=== PATIENT | male | born 1985 | race Two or more races ===

== ENCOUNTER 2021-07-21 00:29 | Emergency (ER) | payer OTHER, SELFPAY ==
--- NOTE | ~2021-07-21 | XR_ITS ---
EXAMINATION: LEFT HAND AND WRIST CLINICAL INFORMATION: Left wrist injury COMPARISON: None TECHNIQUE: 4 views left hand and wrist FINDINGS: No significant bone, joint or soft tissue abnormality is seen. XR/XR hand wrist LT IMPRESSION: Negative exam
[2021-07-21 00:41] VITALS: PULSE 86; RESP 18; TEMP 36.8; O2SAT 98; BMI 34.5
--- NOTE | 2021-07-21 01:21 | ED.EXTPRO ---
HPI - Extremity Problem General Chief complaint: Extremity Injury, Upper Stated complaint: hand pain from previous inj Time Seen by Provider: 07/21/21 01:11 Source: patient History of Present Illness HPI Narrative: Patient complaining of pain in the left wrist for last few months had x-ray done which was negative wearing the splint feels some numbness and tingling on the thumb and 1st 2 fingers no recurrent injury at this time patient complaining of pain getting worse Abi sleep with tingling sensation Related Data Previous Rx's Medication Instructions Recorded ibuprofen 600 mg tablet 600 mg PO Q6H PRN pain #30 tabs 07/21/21 prednisone 20 mg tablet 40 mg PO DAILY #10 tabs 07/21/21 Allergies Allergy/AdvReac Type Severity Reaction Status Date / Time avocado Allergy Rash Verified 07/21/21 00:41 raspberry Allergy Rash Verified 07/21/21 00:41 Review of Systems Review of Systems: Yes all other systems are reviewed and are negative PMFSH Social History Social History Advance Directives: No Advance Directives Information Provided: Yes Physical Exam Vital Signs: Vital Signs: Last Vital Signs Temp 98.3 F 07/21/21 00:41 Pulse 86 07/21/21 00:41 Resp 18 07/21/21 00:41 Pulse Ox 98 07/21/21 00:41 O2 Del Method 07/21/21 00:41 BMI result Body Mass Index 34.5 Extrem: Hand/finger images: 1. Diffuse tenderness slight soft tissue swelling neurovascular intact Tinel sign negative felon positive? With increased pain MDM - Extremity (Nontraumatic) MDM Narrative Medical decision making narrative: Patient x-ray negative likely patient had carpal tunnel syndrome on the left wrist advised to follow with hand surgeon Discharge Plan Discharge Clinical Impression: Carpal tunnel syndrome of left wrist Patient Disposition: Home, Self-Care Instructions: Wrist Sprain (ED) Additional Instructions: Wear the splint as advised especially while asleep Pain medication and anti-inflammatory medication as prescribed Follow with Orthopedics Prescriptions: New prednisone 20 mg tablet 40 mg PO DAILY Qty: 10 0RF ibuprofen 600 mg tablet 600 mg PO Q6H PRN (Reason: pain) Qty: 30 0RF Referrals: Juliano Garzon MD [Physician] - 1 week
[2021-07-21] MEDS: Ibuprofen 600 MG TABLET PO (02:21)
--- NOTE | 2021-07-21 02:24 | PC.NURSE ---
medicated per provider order.
== END 2021-07-21 02:25 | disposition home or self-care (01) ==
PROVIDERS: Emergency Provider Internal Medicine
DX: G56.02 Carpal tunnel syndrome, left upper limb (principal); M25.532 Pain in left wrist
CPT/HCPCS: 73110; 73130; 99283

== ENCOUNTER 2021-10-15 09:51 | Outpatient (REF) | payer OTHER, SELFPAY ==
--- NOTE | 2021-10-15 09:54 | EMG_ITS ---
Left median and ulnar motor and sensory studies were performed. Left radial and sensory study was performed, and paraspinal muscles were tested with a needle. IMPRESSION: Moderately severe left median neuropathy across carpal tunnel. MD JACQUELINE Jackson/JACK / [id number]
== END 2021-10-15 09:52 | disposition home or self-care (01) ==
LOC: HO.NEURO 09:51
PROVIDERS: Visit Provider Physician Assistant
DX: G56.02 Carpal tunnel syndrome, left upper limb (principal)
CPT/HCPCS: 95886; 95909

== ENCOUNTER → 2021-12-09 14:05 | Outpatient (BNVA) | payer OTHER, SELFPAY | PROVIDERS: Visit Provider Physician Assistant | DX: G56.02 Carpal tunnel syndrome, left upper limb (principal) | CPT/HCPCS: 99202 ==

== ENCOUNTER 2021-12-24 | Outpatient (REF) | payer OTHER, SELFPAY ==
--- NOTE | ~2021-12-24 | XR_ITS ---
EXAMINATION: BILATERAL KNEE X-RAY CLINICAL INFORMATION: Pain COMPARISON: None TECHNIQUE: 3 views of both knees FINDINGS: Right: Bone alignment is normal. No fracture or dislocation. Mild arthritis at the medial femoral tibial joint with joint space narrowing and osteophyte formation. No joint effusion. Left: Bone alignment is normal. No fracture or dislocation. Mild arthritis at the medial femoral tibial and patellofemoral joints. Small joint effusion. XR/XR knee standing BI IMPRESSION: Mild bilateral osteoarthritis and left knee joint effusion.
--- NOTE | ~2021-12-24 | XR_ITS ---
EXAMINATION: BILATERAL KNEE X-RAY CLINICAL INFORMATION: Pain COMPARISON: None TECHNIQUE: 3 views of both knees FINDINGS: Right: Bone alignment is normal. No fracture or dislocation. Mild arthritis at the medial femoral tibial joint with joint space narrowing and osteophyte formation. No joint effusion. Left: Bone alignment is normal. No fracture or dislocation. Mild arthritis at the medial femoral tibial and patellofemoral joints. Small joint effusion. XR/XR knee LT 2V IMPRESSION: Mild bilateral osteoarthritis and left knee joint effusion.
--- NOTE | ~2021-12-24 | XR_ITS ---
EXAMINATION: BILATERAL KNEE X-RAY CLINICAL INFORMATION: Pain COMPARISON: None TECHNIQUE: 3 views of both knees FINDINGS: Right: Bone alignment is normal. No fracture or dislocation. Mild arthritis at the medial femoral tibial joint with joint space narrowing and osteophyte formation. No joint effusion. Left: Bone alignment is normal. No fracture or dislocation. Mild arthritis at the medial femoral tibial and patellofemoral joints. Small joint effusion. XR/XR knee RT 2V IMPRESSION: Mild bilateral osteoarthritis and left knee joint effusion.
== END 2021-12-24 00:01 ==
LOC: HO.HOSX
PROVIDERS: Visit Provider Physician Assistant
DX: M22.2X2 Patellofemoral disorders, left knee (principal); M22.2X1 Patellofemoral disorders, right knee
CPT/HCPCS: 73560; 73565; 99212

== ENCOUNTER → 2022-03-22 10:32 | Outpatient (BNVA) | payer OTHER, SELFPAY | PROVIDERS: Visit Provider Orthopaedic Surgery | DX: G56.02 Carpal tunnel syndrome, left upper limb (principal) | CPT/HCPCS: 99202 ==

== ENCOUNTER 2022-04-21 08:18 | Outpatient (REF) | payer OTHER, SELFPAY ==
--- NOTE | ~2022-04-21 | XR_ITS ---
EXAMINATION: XR SHOULDER, RIGHT CLINICAL INFORMATION: Pain COMPARISON: None available. TECHNIQUE: AP external rotation, Grashey, scapular Y, and axillary views of the right shoulder. FINDINGS: The bones and soft tissues are normal. No fracture. Glenohumeral and acromioclavicular alignment is anatomic with normal joint space. No abnormal soft tissue calcifications. XR/XR shoulder RT min 2V IMPRESSION: Unremarkable right shoulder.
== END 2022-04-21 08:19 | disposition home or self-care (01) ==
LOC: HO.HOSX 08:18
PROVIDERS: Visit Provider Physician Assistant
DX: M75.81 Other shoulder lesions, right shoulder (principal)
CPT/HCPCS: 73030; 99212

== ENCOUNTER 2022-04-22 09:41 | Outpatient (REF) | payer OTHER, SELFPAY ==
--- NOTE | 2022-04-22 09:45 | EMG_ITS ---
Right median and ulnar motor and sensory studies were performed. Right radial sensory study was performed. Paraspinal muscles were tested with a needle. IMPRESSION: 1. Moderately severe right median neuropathy across carpal tunnel. 2. Mild right ulnar neuropathy across cubital tunnel. MD JACQUELINE Jackson/JACK / [id number]
== END 2022-04-22 09:42 | disposition home or self-care (01) ==
LOC: HO.NEURO 09:41
PROVIDERS: Visit Provider Orthopaedic Surgery
DX: R20.0 Anesthesia of skin (principal); R20.2 Paresthesia of skin
CPT/HCPCS: 95886; 95909

== ENCOUNTER 2022-05-19 15:00 | Outpatient (RCR) | payer OTHER, SELFPAY | END 2022-08-12 11:47 | disposition home or self-care (01) | LOC: HO.PT 15:00 | PROVIDERS: Visit Provider Physician Assistant | DX: M22.2X1 Patellofemoral disorders, right knee (principal) | CPT/HCPCS: 97110; 97161 ==

== ENCOUNTER 2022-06-12 01:12 | Emergency (ER) | payer OTHER, SELFPAY ==
--- NOTE | ~2022-06-12 | XR_ITS ---
EXAMINATION: XR WRIST, LEFT CLINICAL INFORMATION: Acute on chronic left wrist pain, nontraumatic COMPARISON: 07/21/2021 TECHNIQUE: PA, lateral, and oblique views of the left wrist. FINDINGS: Borderline widened appearance of the scapholunate interval is noted, similar to prior. No acute fracture is seen. No significant soft tissue abnormality identified. XR/XR wrist LT 2V IMPRESSION: Borderline widened appearance of the scapholunate interval, similar to prior and which could reflect sequelae of prior injury. In the setting of chronic pain, further workup with MRI may be helpful.
[2022-06-12 01:20] VITALS: BP 129/84; PULSE 103; RESP 20; TEMP 36.3; O2SAT 96; BMI 31.0
--- NOTE | 2022-06-12 03:09 | ED_ITS ---
HPI - Extremity Problem General Chief complaint: Extremity Problem Stated complaint: Left hand numbness/tingling Time Seen by Provider: 06/12/22 02:24 Source: patient Mode of arrival: ambulatory Limitations: no limitations History of Present Illness HPI Narrative: 36-year-old male who presents emergency department for evaluation of left wrist pain patient states he has been having left wrist pain for 1-2 months but has been worse over the last week. He has seen orthopedics and was told and has carpal tunnel syndrome. He states that he was supposed to have surgery but his glucose was out of control in the surgery was canceled. He states over the past 2 weeks he has had increased pain in his wrist. He complains of numbness and tingling in his thumb index and middle finger. He denies any weakness. He d enies any acute injury. Has been taking naproxen without any relief his pain. Related Data Home Medications Medication Instructions Recorded Confirmed aspirin 81 mg tablet,delayed 81 mg PO DAILY 12/09/21 04/21/22 release atorvastatin 40 mg tablet 40 mg PO DAILY 12/09/21 04/21/22 cetirizine 10 mg tablet 10 mg PO DAILY PRN allergies 12/09/21 04/21/22 insulin glargine 100 unit/mL unit subcut 12/09/21 04/21/22 subcutaneous solution (Lantus U-100 Insulin) insulin syringe-needle U-100 0.5 #10 ea 12/09/21 04/21/22 mL 31 gauge x 5/16 (BD Insulin Syringe Ultra-Fine) dulaglutide 0.75 mg/0.5 mL mg subcut 04/21/22 04/21/22 subcutaneous pen injector (Trulicity) Previous Rx's Medication Instructions Recorded ibuprofen 600 mg tablet 600 mg PO Q6H PRN pain #30 tabs 07/21/21 prednisone 20 mg tablet 40 mg PO DAILY #10 tabs 07/21/21 naproxen 500 mg tablet 500 mg PO BID #60 tabs 05/14/22 Allergies Allergy/AdvReac Type Severity Reaction Status Date / Time avocado Allergy Rash Verified 04/21/22 09:34 raspberry Allergy Rash Verified 04/21/22 09:34 Review of Systems Review of Systems: Yes all other systems are reviewed and are negative PMFSH Past Medical History Medical History Diabetes Hx of eye surgery Hypertension Surgical History Hx of wisdom tooth extraction Social History Social History Advance Directives: No Advance Directives Information Provided: Yes 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 General: Awake, alert, male patient, pleasant, cooperative no distress Right extremity exam: Patient has no significant soft tissue swelling over the wrist hands or fingers, does have tenderness palpation over the carpal tunnel. Has increased pain with flexion extension of the wrist, his extremities neurovascular intact. Medical Decision Making Medical Decision Making MDM Narrative: 36-year-old male who presents emergency department for evaluation of right wrist pain x2 months with increased pain x2 weeks. He has been diagnosed with carpal tunnel syndrome and his surgery was canceled secondary to his diabetes being under control. Patient's presentation and findings are consistent with carpal tunnel syndrome. He was advised to continue taking his naproxen. He was placed in a Velcro wrist splint to see if this improves his symptoms he was told to wear this for 2 weeks. X-rays were obtained and there was no acute fracture noted on my interpretation of these films. Radiologist noted borderline widened appearance of the scapholunate interval, similar to prior and which could reflect sequelae of prior injury . This however does not fit the patient's presentation and clinical picture Differential Diagnosis Differential diagnosis includes was not limited to carpal tunnel syndrome, tendinitis, wrist fracture ABG Data Attestation ABG: I personally reviewed and interpreted this ABG as follows: Independent Interpretation I performed an independent interpretation of an: Plain X-Ray Interpretation: Right wrist x-ray was interpreted by me as no acute fracture or dislocation Radiology Impression Discussion of test interpretation with radiology: I have reviewed the radiologist's reading. Radiologist Impression: XR wrist LT 2V IMPRESSION: Borderline widened appearance of the scapholunate interval, similar to prior and which could reflect sequelae of prior injury. In the setting of chronic pain, further workup with MRI may be helpful. Dictated By:Ronnie Escobar MD Discharge Plan Discharge Clinical Impression: Acute pain of left wrist Acute carpal tunnel syndrome Qualifiers: Laterality: left Qualified Code(s): G56.02 - Carpal tunnel syndrome, left upper limb Patient Disposition: Home, Self-Care Additional Instructions: Your symptoms are consistent with inflammation of the median nerve that goes through the carpal tunnel-this is called carpal tunnel syndrome Treatment is to rest your wrist for at least 1 week. Keep the wrist splint on for 1 week, you can even wear this at night since you do move your wrist at night. Continue taking the naproxen as prescribed by your doctor. Take Tylenol (acetaminophen) 500 mg pills, 2 pills every 6 hours as needed for pain. Apply ice to your wrist for 15 minutes 4 to 6 times a day the next 2-3 days Follow-up with your orthopedic provider for your carpal tunnel syndrome. Please return to the emergency department if your symptoms get worse or if you develop any symptoms that are concerning to you. Prescriptions: No Action naproxen 500 mg tablet 500 mg PO BID Qty: 60 3RF prednisone 20 mg tablet 40 mg PO DAILY Qty: 10 0RF ibuprofen 600 mg tablet 600 mg PO Q6H PRN (Reason: pain) Qty: 30 0RF Trulicity 0.75 mg/0.5 mL pen injector subcut (DME) insulin syringe-needle U-100 [BD Insulin Syringe Ultra-Fine] 0.5 mL 31 gauge x 5/16 syringe See Rx Instructions .ROUTE DAILY Qty: 10 Rx Instructions: As directed cetirizine 10 mg tablet 10 mg PO DAILY PRN (Reason: allergies) aspirin 81 mg tablet,delayed release (DR/EC) 81 mg PO DAILY atorvastatin 40 mg tablet 40 mg PO DAILY insulin glargine [Lantus U-100 Insulin] 100 unit/mL solution subcut Interventions: ED Discharge Assessment Last Done: 06/12/22 03:31 Discharge Date/Time: 06/12/22 03:31
--- NOTE | 2022-06-12 03:34 | PC.NURSE ---
discharge instructions given/explained to pt no apparent distress, splint placed L ambulates safely/independently all of pt's questions answered
== END 2022-06-12 03:31 | disposition home or self-care (01) ==
PROVIDERS: Emergency Provider Emergency Medicine Emergency Medical Services
DX: G56.02 Carpal tunnel syndrome, left upper limb (principal); M25.532 Pain in left wrist; E11.9 Type 2 diabetes mellitus without complications; I10 Essential (primary) hypertension; Z79.899 Other long term (current) drug therapy; Z79.82 Long term (current) use of aspirin; Z79.02 Long term (current) use of antithrombotics/antiplatelets; Z79.4 Long term (current) use of insulin
CPT/HCPCS: 73100; 99283; 99284

== ENCOUNTER → 2022-06-18 14:30 | Outpatient (BNVA) | payer OTHER, SELFPAY | PROVIDERS: Visit Provider Physician Assistant | DX: G56.01 Carpal tunnel syndrome, right upper limb (principal) | CPT/HCPCS: 99212 ==

== ENCOUNTER → 2022-06-23 09:40 | Outpatient (BNVA) | payer OTHER, SELFPAY | PROVIDERS: Visit Provider Orthopaedic Surgery | DX: G56.03 Carpal tunnel syndrome, bilateral upper limbs (principal) | CPT/HCPCS: 99212 ==

== ENCOUNTER 2022-12-23 08:17 | Outpatient (REF) | payer OTHER, SELFPAY ==
--- NOTE | ~2022-12-23 | XR_ITS ---
EXAMINATION: XR KNEE, RIGHT XR KNEE AP STANDING CLINICAL INFORMATION: Pain. COMPARISON: Prior radiographs, most recently 12/24/2021. TECHNIQUE: Four views of the right knee. AP bilateral standing view of the knees was obtained. FINDINGS: The lateral, medial and patellofemoral joint space compartments of the right knee are well-maintained. There is minimal tricompartment peripheral osteophyte formation. No fracture, dislocation or joint effusion is seen. There is no foreign body. The lateral and medial joint space compartments of the left knee are well-maintained, with mild peripheral osteophyte formation. No fracture or dislocation is seen. There is no significant varus or valgus configuration noted bilaterally. XR/XR knee standing BI IMPRESSION: 1. There is minimal tricompartment osteoarthritic change of the right knee. No fracture, dislocation or joint effusion is seen. 2. There is minimal osteoarthritic change of the lateral and medial joint space compartments of the left knee, without fracture or dislocation seen. 3. No significant varus or valgus configuration is seen bilaterally.
--- NOTE | ~2022-12-23 | XR_ITS ---
EXAMINATION: XR KNEE, RIGHT XR KNEE AP STANDING CLINICAL INFORMATION: Pain. COMPARISON: Prior radiographs, most recently 12/24/2021. TECHNIQUE: Four views of the right knee. AP bilateral standing view of the knees was obtained. FINDINGS: The lateral, medial and patellofemoral joint space compartments of the right knee are well-maintained. There is minimal tricompartment peripheral osteophyte formation. No fracture, dislocation or joint effusion is seen. There is no foreign body. The lateral and medial joint space compartments of the left knee are well-maintained, with mild peripheral osteophyte formation. No fracture or dislocation is seen. There is no significant varus or valgus configuration noted bilaterally. XR/XR knee RT 2V IMPRESSION: 1. There is minimal tricompartment osteoarthritic change of the right knee. No fracture, dislocation or joint effusion is seen. 2. There is minimal osteoarthritic change of the lateral and medial joint space compartments of the left knee, without fracture or dislocation seen. 3. No significant varus or valgus configuration is seen bilaterally.
== END 2022-12-23 08:18 | disposition home or self-care (01) ==
LOC: HO.HOSX 08:17
PROVIDERS: Visit Provider Physician Assistant
DX: M22.2X2 Patellofemoral disorders, left knee (principal); M22.2X1 Patellofemoral disorders, right knee
CPT/HCPCS: 73560; 73565; 99212

== ENCOUNTER 2022-12-23 08:59 | Outpatient (AMB) | payer OTHER, SELFPAY ==
--- NOTE | 2022-12-23 09:07 | A.OFFVIS_ITS ---
Intake Vital Signs 12/23/22 09:10 Height 5 ft 9 in Weight 210 lb BMI 31.0 Intake Visit Reasons: OV-Right knee pain Intake Note: Nathan a 37 year old male presents today for a follow up of right knee pain. Patient reports attending PT which provided him relief and continues to do at home exercises. Currently his pain radiates down his leg and will have locking with stair use. States cold weather makes his pain worse. 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 Allergies avocado Allergy (Verified 12/23/22 09:17) Rash raspberry Allergy (Verified 12/23/22 09:17) Rash HPI OV-Right knee pain HPI Details 37-year-old male who returns to the [facility] today for a follow-up of right knee pain. He currently states he has pain in his knee which radiates down to his leg which is aggravated in cold weather. He also c/o locking of his knee with stair use. He had undergone physical therapy which provided him relief and he continues to do exercises at home. He finds no relief with knee brace. 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 He has a history of diabetes. He takes insulin for his sugar. 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 Tenderness along the medial joint line on the right and lateral retropatellar tenderness on the left. ROM full with crepitus. Negative steinmans. No ligamentous laxity. NVI. Results Reviewed Results Reviewed: Xrays were obtained in the office today and personally reviewed by me of the right knee show well preserved joint space. Assessment & Plan Assessment & Plan (1) Patella-femoral syndrome: Code(s): M22.2X9 - Patellofemoral disorders, unspecified knee Qualifiers: Laterality: bilateral Qualified Code(s): M22.2X1 - Patellofemoral disorders, right knee; M22.2X2 - Patellofemoral disorders, left knee Plan We discussed options which include cortisone injection vs physical therapy exercises. I did explain that with his activity level it is likely that he is overstressing the knee and there is an imbalance. Therefore, I strongly encouraged he continues to work on physical therapy exercises. I did print some exercises for him in the office and he will defer on injection today. If symptoms persist or worsens, patient will contact the office, otherwise follow- up as needed. Orders: Orders XR knee RT 2V Today M25.569 - Pain in unspecified knee XR knee standing BI Today M25.561 - Pain in right knee, M25.562 - Pain in left knee Medications: New celecoxib (Celebrex) 200 mg PO BID 30 days 60 caps 3RF celecoxib (Celebrex) 200 mg PO BID 60 caps 3RF 30 days Patient Instructions: Scribed for Blake Dominguez PA-C, by Carlos Horta program medical director, on 12/23/2022 at 9:00 AM EST. I, Blake Dominguez PA-C, have personally reviewed and agree with the information entered by the scribe. Coding Level of Care Code Est Pt Level 3 (89182) Diagnoses Patellofemoral pain syndrome of both knees M22.2X1; M22.2X2 Laterality: bilateral
[2022-12-23 09:10] VITALS: BMI 31.0
== END 2022-12-23 09:32 | disposition home or self-care (01) ==
PROVIDERS: Visit Provider Physician Assistant
DX: M22.2X1 Patellofemoral disorders, right knee (principal); M22.2X2 Patellofemoral disorders, left knee
CPT/HCPCS: 99214

== ENCOUNTER 2023-01-05 15:13 | Outpatient (AMB) | payer OTHER, SELFPAY ==
--- NOTE | 2023-01-05 15:27 | A.OFFVIS_ITS ---
Intake Intake Visit Reasons: OV-CTS B/L hands Intake Note: Nathan 37 yr old male presents today to discuss Carpal tunnel release however his A1C is currently a 8.3. Allergies avocado Allergy (Verified 01/05/23 15:32) Rash raspberry Allergy (Verified 01/05/23 15:32) Rash HPI OV-CTS B/L hands HPI Details Nathan is a 37 year old right hand dominant man who returns to discuss his left carpal tunnel syndrome. He has been signed up two now for a left carpal tunnel release, both were cancelled due to uncontrolled Diabetes. He says his most recent HgA1c was 8.3% on [ ]. He continues to have dense numbness in the left median nerve distribution. He did not attend his scheduled left NCS on 08/19/22, to assess for cubital tunnel syndrome. He has intermittent numbness in the median nerve distribution of his right hand. He also complains of pain and swelling in his hands, and says he has difficulty making a closed fist without pain. He also says his fingers lock on him when making a fist. 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 Review of Systems Const All systems reviewed & are unremarkable except as noted in HPI and below Physical Exam Const General: no acute distress and alert Orientation/consciousness: patient oriented x3 Neuro General: patient oriented x3 Extrem Other: Evaluation of left Upper Extremity: The patient is alert, oriented, and in no acute distress Neuro: Improved and more normal to the tips of all digits of his left hand No intrinsic or thenar wasting Good finger cross Vascular: Cap refill brisk ROM: With encouragement he can make a fist and extend all his digits He complains of pain in the mid palm of his left hand, as well as a bony prominence on the dorsal base of the hand Radiographs: 3 views of the left hand were taken and viewed by me today in clinic. They show no fractures or dislocations. [ ] Nerve Conduction Study: EMG of right upper extremity only 04/2022 1. Moderately severe right median neuropathy across carpal tunnel. 2. Mild right ulnar neuropathy across cubital tunnel. Psych Appearance: grossly normal Affect: normal affect Attitude: cooperative Assessment & Plan Assessment & Plan (1) Carpal tunnel syndrome on right: Code(s): G56.01 - Carpal tunnel syndrome, right upper limb (2) Carpal tunnel syndrome of left wrist: Code(s): G56.02 - Carpal tunnel syndrome, left upper limb (3) Bilateral hand numbness: Code(s): R20.0 - Anesthesia of skin (4) Diabetes: Code(s): E11.9 - Type 2 diabetes mellitus without complications (5) Stiffness of left hand joint: Code(s): M25.642 - Stiffness of left hand, not elsewhere classified Plan Assessment and plan: 1. Left carpal tunnel syndrome based on clinical exam More normal sensation No thenar wasting yet. 2. Numbness and tingling in the left small finger Intermittent, and he thinks it is now daily He did not attend his previously ordered NCS to assess his left side. I educated him about these conditions We discussed operative and non operative treatment options. He has been scheduled twice for a carpal tunnel release, both of these were cancelled due to an elevated HgA1c. He says his most recent HgA1c is now 8.3%, down form >13%. He will continue to work on this I ordered a new NCS for his LUE to assess for peripheral nerve compression He will follow up when completed for review and after his next HgA1c is tested. This appointment should be sometime in late March at the earliest 3. Left hand stiffness I encouraged him to work on ROM exercises at home 4. Right carpal tunnel syndrome, mild to moderate Symptoms intermittent but daily 5. Right cubital tunnel syndrome, mild He is not sure if he gets numbness and tingling in the right small finger Please note that greater than 35 minutes was spent with this patient going over the history, evaluating the patient and radiographs, formulating possible treatment options, discussing them with the patient, and documenting the visit. Scribed for Rimma Vilchis MD by Oliverio Ladd, medical facilities section director, on 01/05/23 at 3:45 PM, EST. Orders: Orders XR hand LT min 3V 01/05/23 M79.642 - Pain in left hand NE nerve conduction velocity 01/05/23 R20.0 - Anesthesia of skin, R20.2 - Paresthesia of skin Coding Level of Care Code Est Pt Level 4 (66729) Diagnoses Carpal tunnel syndrome on right G56.01 Carpal tunnel syndrome of left wrist G56.02 Bilateral hand numbness R20.0 Diabetes E11.9 Stiffness of left hand joint M25.645
== END 2023-01-05 15:54 | disposition home or self-care (01) ==
PROVIDERS: Visit Provider Orthopaedic Surgery
DX: G56.03 Carpal tunnel syndrome, bilateral upper limbs (principal); R20.0 Anesthesia of skin; E11.9 Type 2 diabetes mellitus without complications; M25.642 Stiffness of left hand, not elsewhere classified
CPT/HCPCS: 99213

== ENCOUNTER 2023-01-05 15:13 | Outpatient (REF) | payer OTHER, SELFPAY ==
--- NOTE | ~2023-01-05 | XR_ITS ---
EXAMINATION: XR HAND, LEFT CLINICAL INFORMATION: Pain in left hand COMPARISON: Left wrist from 06/12/2022 TECHNIQUE: PA, lateral, and oblique views of the left hand. FINDINGS: The bones and soft tissues are normal. No fracture. Alignment is anatomic. Joint spaces are maintained. No erosions or soft tissue calcifications. XR/XR hand LT min 3V IMPRESSION: Normal left hand.
== END 2023-01-05 15:14 | disposition home or self-care (01) ==
LOC: HO.HOSX 15:13
PROVIDERS: Visit Provider Orthopaedic Surgery
DX: G56.03 Carpal tunnel syndrome, bilateral upper limbs (principal); R20.0 Anesthesia of skin; M25.642 Stiffness of left hand, not elsewhere classified; E11.9 Type 2 diabetes mellitus without complications
CPT/HCPCS: 73130; 99212

== ENCOUNTER 2023-02-02 13:44 | Emergency (ER) | payer OTHER, SELFPAY ==
--- NOTE | 2023-02-02 13:48 | ED_ITS ---
HPI - Abdominal Pain General Chief Complaint: Abdominal Pain Stated Complaint: Abd pain Related Data Home Medications Medication Instructions Recorded Confirmed aspirin 81 mg tablet,delayed 81 mg PO DAILY 12/09/21 04/21/22 release atorvastatin 40 mg tablet 40 mg PO DAILY 12/09/21 04/21/22 cetirizine 10 mg tablet 10 mg PO DAILY PRN allergies 12/09/21 04/21/22 insulin syringe-needle U-100 0.5 #10 ea 12/09/21 04/21/22 mL 31 gauge x 5/16 (BD Insulin Syringe Ultra-Fine) dulaglutide 1.5 mg/0.5 mL mg subcut 12/23/22 subcutaneous pen injector (Trulicity) insulin glargine 100 unit/mL (3 unit subcut 12/23/22 mL) subcutaneous pen (Lantus Solostar U-100 Insulin) Previous Rx's Medication Instructions Recorded ibuprofen 600 mg tablet 600 mg PO Q6H PRN pain #30 tabs 07/21/21 prednisone 20 mg tablet 40 mg (2 x 20 mg) PO DAILY #10 tabs 07/21/21 naproxen 500 mg tablet 500 mg PO BID #60 tabs 05/14/22 celecoxib 200 mg capsule (Celebrex) 200 mg PO BID 30 days #60 caps 12/23/22 Allergies Allergy/AdvReac Type Severity Reaction Status Date / Time avocado Allergy Rash Verified 01/05/23 15:32 raspberry Allergy Rash Verified 01/05/23 15:32 [facility] Past Medical History Medical History (Updated 02/03/23 @ 16:49 by CAMERON Valle) Hx of eye surgery Hypertension Diabetes Surgical History Hx of wisdom tooth extraction Social History Social History Advance Directives on File: No 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 denies testicular pain. Admits pain is intermittent. Denies dysuria/hematuria Labs, UA, CTNG ordered Full HPI, ROS and PE to be performed by primary ED provider.x HTN, DM, c/o Medical Decision Making Lab Data 02/02/23 14:06 02/02/23 14:06 Labs: Lab Results 02/02/23 Range/Units 14:06 WBC 4.7 L (4.8-10.8) X10*3/uL RBC 5.19 (4.60-5.80) X10*6/uL Hgb 15.3 (14.0-18.0) g/dl Hct 45.1 (42.0-52.0) % MCV 86.9 (80.0-98.0) fL MCH 29.5 (27.0-33.0) pg MCHC 33.9 (31.0-36.0) g/dl RDW 13.3 (11.0-16.0) % Plt Count 200 (160-400) X10*3/uL MPV 10.6 (9.4-12.4) fL Immature Gran % (Auto) 0.0 (0.0-0.4) % Neut % (Auto) 54.6 (45-73) % Lymph % (Auto) 31.0 (20-40) % [place] % (Auto) 10.2 (2-11) % Eos % (Auto) 3.8 (0-4) % Baso % (Auto) 0.4 (0-2) % Lymph # (Auto) 1.5 (1.2-4.9) X10*3/uL [place] # (Auto) 0.5 (0.1-1.2) X10*3/uL Eos # (Auto) 0.2 (0.0-0.4) X10*3/uL Baso # (Auto) 0.0 (0.0-0.2) X10*3/uL Abs Immat Gran (auto) 0.00 (0.00-0.03) X10*3/uL Absolute Neuts (auto) 2.6 (2.0-8.3) x10*3/uL Absolute Nucleated RBC 0.000 (0.0-0.012) X10*3/uL Nucleated RBC % (auto) 0.0 (0.0-0.2) /100WBC Sodium 137 (135-145) mmol/L Potassium 4.0 (3.3-5.1) mmol/L Chloride 105 (96-108) mmol/L Carbon Dioxide 27 (22-29) mmol/L Anion Gap 9 L (12-20) BUN 11 (9-16) mg/dL Creatinine 0.96 (0.5-1.4) mg/dL Estim Creat Clear Calc 124.0 Estimated GFR > 60 Random Glucose 300 H (60-115) mg/dL Calcium 9.2 (8.4-10.2) mg/dL Magnesium 1.9 (1.6-2.6) mg/dL Total Bilirubin 0.4 (0.0-1.0) mg/dL Direct Bilirubin 0.1 (0.0-0.5) mg/dL AST 21 (5-37) U/L ALT 25 (0-40) U/L Alkaline Phosphatase 93 (39-117) U/L Total Protein 7.4 (6.5-8.0) g/dL Albumin 4.2 (3.5-5.0) g/dL Lipase 28 (8-78) U/L Urine Color Yellow Urine Appearance Clear Urine pH 6.0 (5.0-9.0) Ur Specific [place] >= 1.030 H (1.005-1.025) Urine Protein Negative (Neg-Trace) mg/dL Urine Glucose (UA) >=1000 H (Negative) mg/dL Urine Ketones Negative (Negative) mg/dL Urine Blood Negative (Negative) Urine Nitrite Negative (Negative) Ur Leukocyte Esterase Negative (Negative) Urine RBC 3-5 H (0-2) /HPF Urine WBC 0-5 (0-5) /HPF Ur Squamous Epith Cells 0-2 (0-2) /HPF Urine Bacteria None Seen (None Seen) Hyaline Casts 0-2 (0-2) /LPF Chlam trachomat DNA PCR NOT DETECTED (Not Detect.) N.gonorrhoeae DNA (PCR) NOT DETECTED (Not Detect.) Discharge Plan Discharge Clinical Impression: Abdominal pain Patient Disposition: Left W/O Completing Treatment Prescriptions: No Action naproxen 500 mg tablet 500 mg PO BID Qty: 60 3RF prednisone 20 mg tablet 40 mg PO DAILY Qty: 10 0RF ibuprofen 600 mg tablet 600 mg PO Q6H PRN (Reason: pain) Qty: 30 0RF (DME) insulin syringe-needle U-100 [BD Insulin Syringe Ultra-Fine] 0.5 mL 31 gauge x 5/16 syringe See Rx Instructions .ROUTE DAILY Qty: 10 Rx Instructions: As directed cetirizine 10 mg tablet 10 mg PO DAILY PRN (Reason: allergies) aspirin 81 mg tablet,delayed release (DR/EC) 81 mg PO DAILY atorvastatin 40 mg tablet 40 mg PO DAILY Trulicity 1.5 mg/0.5 mL pen injector subcut insulin glargine [Lantus Solostar U-100 Insulin] 100 unit/mL (3 mL) insulin pen subcut celecoxib [Celebrex] 200 mg capsule 200 mg PO BID 30 Days Qty: 60 3RF Discharge Date/Time: 02/02/23 22:22
[2023-02-02 13:49] VITALS: BP 128/81; PULSE 77; RESP 18; TEMP 36.7; O2SAT 99; BMI 34.1
[2023-02-02 14:12] LABS: MANUAL DIFF FLAG NO
[2023-02-02 14:19] LABS: Basophils Percent Auto 0.4 % (0-2); Eosinophils Absolute Auto 0.2 X10*3/uL (0.0-0.4); Eosinophils Percent Auto 3.8 % (0-4); Hematocrit 45.1 % (42.0-52.0); Hemoglobin 15.3 g/dl (14.0-18.0); Lymphocytes Absolute Auto 1.5 X10*3/uL (1.2-4.9); Mean Corpuscular HGB Conc 33.9 g/dl (31.0-36.0); Mean Corpuscular Hemoglobin 29.5 pg (27.0-33.0); Mean Corpuscular Volume 86.9 fL (80.0-98.0); Mean Platelet Volume 10.6 fL (9.4-12.4); Monocytes Absolute Auto 0.5 X10*3/uL (0.1-1.2); Monocytes Percent Auto 10.2 % (2-11); Neutrophils Absolute Auto 2.6 x10*3/uL (2.0-8.3); Neutrophils Percent Auto 54.6 % (45-73); Platelet Count 200 X10*3/uL (160-400); Red Blood Count 5.19 X10*6/uL (4.60-5.80); Red Cell Distribution Width 13.3 % (11.0-16.0); White Blood Count 4.7 X10*3/uL (4.8-10.8)
[2023-02-02 14:21] LABS: Appearance Urine Clear; Color Urine Yellow; Glucose Urine UA >=1000 mg/dL (Negative); Leukocyte Esterase Urine Negative (Negative); Nitrite Urine Negative (Negative); Specific Gravity - Urine >= 1.030 (1.005-1.025); UMIC TRIGGER UACC YES; Urine Blood Negative (Negative); Urine Ketones Negative (Negative); Urine Protein Negative (Neg-Trace)
[2023-02-02 14:27] LABS: Bacteria Urine None Seen (None Seen); Hyaline Casts Urine 0-2 /LPF (0-2); Squamous Epithelial Cell Urine 0-2 /HPF (0-2); WBC Urine 0-5 /HPF (0-5)
[2023-02-02 14:38] LABS: Alanine Aminotransferase 25 U/L (0-40); Albumin Level 4.2 g/dL (3.5-5.0); Alkaline Phosphatase 93 U/L (39-117); Anion Gap 9 (12-20); Aspartate Amino Transferase 21 U/L (5-37); Bilirubin Direct 0.1 mg/dL (0.0-0.5); Bilirubin Total 0.4 mg/dL (0.0-1.0); Blood Urea Nitrogen 11 mg/dL (9-16); Calcium 9.2 mg/dL (8.4-10.2); Carbon Dioxide 27 mmol/L (22-29); Chloride 105 mmol/L (96-108); Estimated Glomerular Filt Rate > 60; Glucose Random 300 mg/dL (60-115); Lipase 28 U/L (8-78); Magnesium 1.9 mg/dL (1.6-2.6); Sodium 137 mmol/L (135-145); Total Protein 7.4 g/dL (6.5-8.0)
[2023-02-02 16:37] LABS: CT PCR NOT DETECTED (Not Detect.); NG PCR NOT DETECTED (Not Detect.)
--- NOTE | 2023-02-02 20:13 | PC.NURSE ---
pt not in waiting room at 2000
== END 2023-02-02 22:22 | disposition left against medical advice (07) ==
LOC: HO.ED 22:20
PROVIDERS: Physician Assistant; Emergency Provider Emergency Medicine
DX: R10.9 Unspecified abdominal pain (principal); I10 Essential (primary) hypertension; E11.9 Type 2 diabetes mellitus without complications
CPT/HCPCS: 0353U; 36415; 80048; 80076; 81001; 83690; 83735; 85025; 99282; 99283

== ENCOUNTER 2023-05-04 13:32 | Outpatient (REF) | payer OTHER, SELFPAY ==
--- NOTE | 2023-05-04 13:35 | EMG_ITS ---
Chief complaint: Continued hand numbness, poorly controlled DM Reviewed past EMG. Done by Dr. Navarro, right 04/22/2022, left 10/2021. Reason for referral: Evaluate for Carpal Tunnel Syndrome Referred by: Dr. Vilchis Procedure done: Left upper extremity NCS/EMG Precautions and/or limitations: None The limb temperature was monitored continuously and remained between 32-36 degrees C during the performance of the NCS. Nerve Conduction Studies Anti Sensory Summary Table ?Stim Site NR Onset (ms) Norm Onset (ms) Peak (ms) Norm Peak (ms) O-P Amp (?V) Norm O-P Amp Site1 Site2 Delta-0 (ms) Dist (cm) Carlos Alberto (m/s) Norm Carlos Alberto (m/s) Left Median Anti Sensory (2nd Digit) Wrist NR <3.6 >10 Wrist 2nd Digit 14.0 Left Radial Anti Sensory (Thumb) Forearm ? 1.7 2.1 <3.1 28.3 Forearm Thumb 1.7 0.0 Left Ulnar Anti Sensory (5th Digit) Wrist ? 2.3 3.0 <3.7 12.5 >15.0 Wrist 5th Digit 2.3 14.0 61 Motor Summary Table ?Stim Site NR Onset (ms) Norm Onset (ms) O-P Amp (mV) Norm O-P Amp iAmp (mV) Amp (1st) (%) Site1 Site2 Delta-0 (ms) Dist (cm) Carlos Alberto (m/s) Norm Carlos Alberto (m/s) Left Median Motor (Abd Poll Brev) Wrist ? 10.3 <3.9 1.1 >4.5 1.2 100.0 Elbow Wrist 4.8 21.5 45 >45 Elbow ? 15.1 0.9 1.0 81.8 Left Ulnar Motor (Abd Dig Minimi) Wrist ? 2.8 <3.0 5.5 >5 7.2 100.0 B Elbow Wrist 3.7 20.0 54 >45 B Elbow ? 6.5 9.1 11.7 165.5 A Elbow B Elbow 1.7 10.0 59 >45 A Elbow ? 8.2 8.9 11.4 161.8 EMG ?Side Muscle Nerve Root Ins Act Fibs Psw Amp Dur Poly Recrt Int Pat Comment Left 1stDorInt Ulnar C8-T1 Nml Nml Nml Nml Nml 0 Nml Complete Left FlexCarRad Median C6-7 Nml Nml Nml Nml Nml 0 Nml Complete Left Biceps Musculocut C5-6 Nml Nml Nml Nml Nml 0 Nml Complete Left Triceps Radial C6-7-8 Nml Nml Nml Nml Nml 0 Nml Complete Left Deltoid Axillary C5-6 Nml Nml Nml Nml Nml 0 Nml Complete Left Abd Poll Brev Median C8-T1 Incr 1+ 1+ Nml Nml 0 Nml Complete FINDINGS: Left median motor nerve showed prolonged distal latency, small amplitude and normal conduction velocity. Left median sensory nerve showed absent response. All other nerves tested were within normal. Concentric needle EMG was performed in selected muscles of the left upper extremity. Study revealed signs of electric abnormalities as shown in the table below. Left APB showed increased insertional activity, fibrillations and PSWs IMPRESSION: 1. This is an abnormal study. 2. There is electrodiagnostic evidence for left moderate-severe median neuropathy at the wrist, consistent with carpal tunnel syndrome. 3. There is no electrodiagnostic evidence for ulnar neuropathy, brachial plexopathy, or cervical radiculopathy. CLINICAL COMMENT: Study today shows worsening as compared to study done 2021. Thank you for your kind referral. Katty Adame MD, [place]WA Board Certified, [place] [employer] and Rehabilitation (ABPMR) Board Certified, [place] Board [employer] Electrodiagnostic Medicine (ABEM) [place] [id number] [facility]
== END 2023-05-04 13:33 | disposition home or self-care (01) ==
LOC: HO.NEURO 13:32
PROVIDERS: Visit Provider Orthopaedic Surgery
DX: R20.0 Anesthesia of skin (principal); R20.2 Paresthesia of skin
CPT/HCPCS: 95886; 95909

== ENCOUNTER → 2023-05-04 13:35 | Outpatient (BNV) | payer OTHER, SELFPAY | PROVIDERS: Visit Provider Physical Medicine & Rehabilitation | DX: G56.02 Carpal tunnel syndrome, left upper limb (principal); G56.12 Other lesions of median nerve, left upper limb | CPT/HCPCS: 95886; 95909 ==

== ENCOUNTER 2023-05-31 10:38 | Outpatient (AMB) | payer OTHER, SELFPAY ==
--- NOTE | 2023-05-31 10:39 | MHC.OFFVIS ---
Vital Signs 05/31/23 10:53 Height 5 ft 8 in Weight 223 lb BMI 33.9 Intake Visit Reasons: OV- EMG Done LT hand Intake Note: Nathan is a 37 year old right hand dominant man who returns to discuss his left carpal tunnel syndrome. He has been signed up two now for a left carpal tunnel release, both were cancelled due to uncontrolled Diabetes. Reports his symptoms have worsen. States his A1C is still high. New NCS ordered for his LUE to assess for peripheral nerve compression done 05/04/23. Allergies avocado Allergy (Verified 05/31/23 10:54) Rash raspberry Allergy (Verified 05/31/23 10:54) Rash HPI HPI OV- EMG Done LT hand: Details: Nathan is a 37 year old right hand dominant man who returns for a NCS review of his left carpal tunnel syndrome. He has been signed up two now for a left carpal tunnel release, both were cancelled due to uncontrolled Diabetes. He says his most recent HgA1c is high at 10.2%, which occurred after a 2 month lapse in the medication he needed for treatment of his diabetes. Evidently there has been a shortage.. He continues to have dense numbness in the left median nerve distribution, and worsening numbness in the right median nerve distribution. His right hand symptoms are intermittent, but daily, worse at night He says his hand locking & stiffness has improved. He is a Diabetic, and says he recently went without medication for ~2 months due to a shortage of Trulicity and issues with his insurance. He says he was able to resume his medication ~3 weeks ago, and is scheduled to meet with his PCP soon. 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 Normal sensation in the small fingers, bilaterally No thenar wasting on the left Some thenar wasting on the right No intrinsic wasting bilaterally Good APB muscle belly firing & good finger cross Vascular: Cap refill brisk ROM: He can make a fist and extend all his digits Nerve Conduction Study: Left side only: IMPRESSION: 1. This is an abnormal study. 2. There is electrodiagnostic evidence for left moderate-severe median neuropathy at the wrist, consistent with carpal tunnel syndrome. 3. There is no electrodiagnostic evidence for ulnar neuropathy, brachial plexopathy, or cervical radiculopathy. CLINICAL COMMENT: Study today shows worsening as compared to study done 2021. Katty Adame MD, HAWA 05/04/23 Right side only: 1. Moderately severe right median neuropathy across carpal tunnel. 2. Mild right ulnar neuropathy across cubital tunnel. Dr. Navarro 04/22/22 Psych Appearance: grossly normal Affect: normal affect Attitude: cooperative Office Procedures Fracture Care Details: No fracture, carpal tunnel injection Fracture Billing Code: Fracture Billing Code Assessment & Plan Assessment & Plan (1) Carpal tunnel syndrome on right: Code(s): G56.01 - Carpal tunnel syndrome, right upper limb Category: Medical (2) Carpal tunnel syndrome of left wrist: Code(s): G56.02 - Carpal tunnel syndrome, left upper limb Category: Medical (3) Bilateral hand numbness: Code(s): R20.0 - Anesthesia of skin Category: Medical (4) Diabetes: Code(s): E11.9 - Type 2 diabetes mellitus without complications Category: Medical (5) Stiffness of left hand joint: Code(s): M25.642 - Stiffness of left hand, not elsewhere classified Category: Medical Plan Assessment and plan: 1. Left carpal tunnel syndrome, moderate-severe With dense numbness 2. Numbness and tingling in the left small finger More normal sensation today. No cubital tunnel seen on NCS from 05/04/23 I educated him about these conditions We discussed operative and non operative treatment options. He has been scheduled twice for a carpal tunnel release, both of these were cancelled due to an elevated HgA1c. He says his most recent HgA1c was elevated due to being off of medication for ~2 months, and resumed his medication ~3 weeks ago. He says his last HgA1c was ~10.2% Due to his symptoms, his nighttime symptoms are causing him considerable discomfort, and uncontrolled Diabetes precluding operative treatment at this time, I recommend a carpal tunnel injection today. I discussed the importance of having surgery before he develops muscle wasting. i discussed the importance of controlling his Diabetes. He understands he needs an updated HgA1c that is <8.1% in order to proceed with surgery. He will follow up to discuss surgery when his HgA1c is under control Injection #1: The risks and benefits of a steroid injection including but not limited to risk of damage to blood vessels, nerves, tendons, infection, skin bleaching, failure to improve symptoms, increased pain, and possible need for further injections or other intervention were discussed with the patient and the patient wishes to proceed with the steroid injection. Once consent was obtained, I sterilely prepped the area over the Left carpal tunnel. I then passed the needle just ulnar to the palmaris longus tendon at the distal palmar crease and injected the carpal tunnel with a combination of 1 mL of Depo-Medrol (40mg/ml), and 1% lidocaine. The patient developed increased dense numbness in the median nerve distribution, and tolerated the procedure well with no complications. 3. Left hand stiffness Improved since his last appointment I encouraged him to work on ROM exercises at home 4. Right carpal tunnel syndrome, mild to moderate With dense numbness With some thenar wasting 5. Right cubital tunnel syndrome, mild He is not sure if he gets numbness and tingling in the right small finger Scribed for Rimma Vilchis MD by Oliverio Ladd, pediatrician/medical doctor, on 05/31/23 at 11:00 AM, EST. Coding Level of Care Code Est Pt Level 4 (59554) Diagnoses Carpal tunnel syndrome on right G56.01 Carpal tunnel syndrome of left wrist G56.02 Bilateral hand numbness R20.0 Diabetes E11.9 Stiffness of left hand joint M25.642 CPT Codes Fracture Care - Fracture Billing Code: Fracture Billing Code ([id number])
[2023-05-31 10:53] VITALS: BMI 33.9
== END 2023-05-31 11:20 | disposition home or self-care (01) ==
PROVIDERS: Visit Provider Orthopaedic Surgery
DX: G56.03 Carpal tunnel syndrome, bilateral upper limbs (principal); R20.0 Anesthesia of skin; E11.9 Type 2 diabetes mellitus without complications; M25.642 Stiffness of left hand, not elsewhere classified
CPT/HCPCS: 20526; 99214

== ENCOUNTER → 2023-05-31 10:38 | Outpatient (BNVA) | payer OTHER, SELFPAY | PROVIDERS: Visit Provider Orthopaedic Surgery | DX: G56.03 Carpal tunnel syndrome, bilateral upper limbs (principal); R20.0 Anesthesia of skin; M25.642 Stiffness of left hand, not elsewhere classified; E11.9 Type 2 diabetes mellitus without complications | CPT/HCPCS: 20526; 99212; J1010 ==

== ENCOUNTER 2023-12-14 10:51 | Outpatient (AMB) | payer OTHER, SELFPAY ==
[2023-12-14 10:56] VITALS: BMI 33.9
--- NOTE | 2023-12-14 10:56 | A.OFFVIS_ITS ---
Vital Signs 12/14/23 10:56 Height 5 ft 8 in Weight 223 lb BMI 33.9 Intake Visit Reasons: Preop RT CTR 12/22/23 AR Intake Note: Nathan is a 37 year old right hand dominant male who presents today pre- operatively. Patient will be having right carpal tunnel release on 12/22/[address] Vilchis. Allergies avocado Allergy (Verified 12/14/23 10:57) Rash raspberry Allergy (Verified 12/14/23 10:57) Rash HPI Comments Details: Patient is a 37-year-old male who presents for preoperative evaluation for right carpal tunnel release, DOS 12/22/2023. Today, the patient reports that his symptoms have worsened, and then he has progressed to dense numbness since previous evaluation. Patient states he would like to still proceed with surgery. No other acute complaints or concerns at this time. 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 Normal sensation in the small fingers, bilaterally No thenar wasting on the left Some thenar wasting on the right No intrinsic wasting bilaterally Good APB muscle belly firing & good finger cross Vascular: Cap refill brisk ROM: He can make a fist and extend all his digits Nerve Conduction Study: Left side only: IMPRESSION: 1. This is an abnormal study. 2. There is electrodiagnostic evidence for left moderate-severe median neuro migdalia at the wrist, consistent with carpal tunnel syndrome. 3. There is no electrodiagnostic evidence for ulnar neuropathy, brachial plexopathy, or cervical radiculopathy. CLINICAL COMMENT: Study today shows worsening as compared to study done 2021. Katty Adame MD, [place] 05/04/23 Right side only: 1. Moderately severe right median neuropathy across carpal tunnel. 2. Mild right ulnar neuropathy across cubital tunnel. Dr. Navarro 04/22/22 Psych Appearance: grossly normal Affect: normal affect Attitude: cooperative Assessment & Plan Assessment & Plan (1) Carpal tunnel syndrome on right: Code(s): G56.01 - Carpal tunnel syndrome, right upper limb Category: Medical Plan 1. Carpal tunnel syndrome, right Symptoms constant, daily, worse at night I educated the patient about the condition. I discussed both operative and nonoperative treatment options. The patient would like to proceed with surgery. Patient is educated that because he has dense numbness, normal sensation may not come back after surgery. Patient expresses understanding of the The risks and benefits of operative treatment were discussed with the patient and the patient wishes to proceed with surgery. These risks include, but are not limited to, risk of damage to blood vessels, nerves, tendons, infection, recurrence, incomplete relief of preoperative symptoms, persistent pain, possible need for further surgery, and the risks associated with regional blocks and/or anesthesia. Plan is to take the patient to the operating room at some point in the next few weeks for the following procedures: 1. Right carpal tunnel release under local anesthesia All of the preoperative paperwork including the consent was discussed today. All of the patient's questions were answered in the clinic today. The patient understands that they will be in contact with our surgical sales representative to discuss scheduling their procedure. Patient denies diabetes, blood thinners, asthma, heart issues, lung issues, kidney issues, or current smoking. Coding Level of Care Code Est Pt Level 4 (40562) Diagnoses Carpal tunnel syndrome on right G56.01
== END 2023-12-14 11:27 | disposition home or self-care (01) ==
LOC: HO.HOS 10:51
PROVIDERS: PCP Nurse Practitioner Family
DX: G56.01 Carpal tunnel syndrome, right upper limb (principal)
CPT/HCPCS: 99214

== ENCOUNTER → 2023-12-14 10:51 | Outpatient (BNVA) | payer OTHER, SELFPAY | PROVIDERS: PCP Nurse Practitioner Family | DX: Z01.818 Encounter for other preprocedural examination (principal); G56.01 Carpal tunnel syndrome, right upper limb | CPT/HCPCS: 99212 ==

== ENCOUNTER 2023-12-22 11:20 | Day surgery (SDC) | payer OTHER, SELFPAY ==
[2023-12-21 13:36] VITALS: BMI 33.9
--- NOTE | 2023-12-22 12:58 | P.OP_ITS ---
Operative Note Operative Note Date of Service: 12/22/23 Narrative: Preop diagnosis: 1. Right Carpal tunnel syndrome Postop diagnosis: same Procedure: 1. Right Carpal tunnel release Surgeon: Rimma Vilchis MD Reclamation Engineer: Jak BARNES Anesthesia: local block using 1% lidocaine with epinephrine Findings: Thickened transverse carpal ligament. EBL: Less than 5 mL Specimens: None Complications: None Disposition: Brought to recovery room in stable condition Plan: Follow-up for 10-14 days for wound check and suture removal Indications: The patient is 38 years old, with right carpal tunnel syndrome that has been unresponsive to nonoperative management. The risks and benefits of operative treatment including but not limited to risk of damage to blood vessels, nerves, tendons, infection, persistent pain, persistent symptoms, or possible need for additional surgery were discussed with the patient and the patient wishes to proceed with surgery. Procedure: Once consent was obtained a local block was performed using a combination of 1% lidocaine with epinephrine. The patient was then brought back to the operating suite and placed on the operative table in supine position. The right upper extremity was prepped and draped in a standard surgical fashion. Once assured that we had a good block, a 2.0 cm longitudinal incision was made centered over the carpal tunnel. The incision was made through the skin to the subcutaneous tissues using a #15 blade. Dissection was made down to the level of the transverse carpal ligament with care being taken to protect the palmar cutaneous nerve. Once the transverse carpal ligament was clearly visualized, a longitudinal incision was made in the transverse carpal ligament 1st using a #15 blade, then using tenotomy scissors under direct visualization. Care was taken to look for and protect the motor branch of the median nerve when seen in this area. Once satisfied with our carpal tunnel release the wound was copiously irrigated with normal saline and hemostasis was obtained with a brief period of local pressure. The skin edges were reapproximated with some 5.0 nylon suture material and a sterile dressing was applied. The patient appears to have tolerated the procedure well and with no complications. All digits were well vascularized at the conclusion of the case.
--- NOTE | 2023-12-22 12:58 | MHC.SHP ---
Pre-Procedural Eval Section A - 24 Hr Update-Section A only Date of Service: 12/22/23 The patient is an INPATIENT: No Changes since office visit: No Cold of Flu in the past 2 weeks, No New Medical Problems, No Changes in Medication and No Patient answered all questions The patient has been examined within 24 hours of the surgical procedure. The History & Physical has been completed within 30 days and I have reviewed it.: Yes Section B - Complete if H&P > 30 days Chief Complaint: Carpal tunnel syndrome, right upper limb Allergies: Allergies Allergy/AdvReac Type Severity Reaction Status Date / Time avocado Allergy Rash Verified 12/14/23 10:57 raspberry Allergy Rash Verified 12/14/23 10:57 Plan Diagnosis/Plan: Unchanged I have reviewed the history and physical and performed a pertinent physical examination on my patient. No changes have occurred unless specified. Time Spent With Patient Time: Total time managing care of this patient today ____ minutes.
[2023-12-22 13:01] VITALS: BP 133/77; PULSE 65; RESP 20; TEMP 36.9; O2SAT 98
[2023-12-22 15:55] VITALS: BP 142/82; PULSE 73; RESP 16; O2SAT 100
== END 2023-12-22 15:57 | disposition home or self-care (01) ==
PROVIDERS: PCP Nurse Practitioner Family; Visit Provider Orthopaedic Surgery
PROC: (CPT 64721; principal; 2023-12-22 13:10)
DX: G56.01 Carpal tunnel syndrome, right upper limb (principal); I10 Essential (primary) hypertension; Z98.890 Other specified postprocedural states
CPT/HCPCS: 64721; J0171; J2003

== ENCOUNTER → 2023-12-22 11:20 | Outpatient (BNV) | payer OTHER, SELFPAY | PROVIDERS: PCP Nurse Practitioner Family; Visit Provider Orthopaedic Surgery | DX: G56.01 Carpal tunnel syndrome, right upper limb (principal) | CPT/HCPCS: 64721 ==

== ENCOUNTER 2024-01-04 10:20 | Outpatient (AMB) | payer OTHER, SELFPAY ==
--- NOTE | 2024-01-04 08:19 | MHC.OFFVIS ---
Intake Visit Reasons: PO RT CTR 12/22/23 AR Intake Note: Nathan is a 38 yo right hand dominant female who presents today post operatively s/p right carpal tunnel release performed by 12/22/[address] Vilchis. Sutures removed in office today and steri strips applied. Allergies avocado Allergy (Verified 01/04/24 10:33) Rash raspberry Allergy (Verified 01/04/24 10:33) Rash HPI HPI PO RT CTR 12/22/23 AR: Details: Nathan is a 38 year old right hand dominant man who returns S/P right carpal tunnel release, DOS: 12/22/23. He says he is doing ok. He complains of occasional pain in his right wrist still, but improved from prior to surgery. He says his sensation has improved but is not yet normal. He says his nighttime symptoms have improved. Normal sensation to the right small finger. He says his left hand is not particularly bothersome for him. He received a left carpal tunnel injection on 05/31/23, and he says his sensation is more normal in the fingers of his left hand. He is a Diabetic, and this has been poorly controlled in the past, partially due to medication shortage. 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 Sutures removed and Steri-Strips applied He can make a fist and extend all his digits Neuro: Improved but not yet normal sensation in the median nerve distribution of the right hand. Normal sensation in the right ulnar nerve distribution Today he said he had normal sensation to all of the digits of the left hand when tested. No thenar wasting on the left Some thenar wasting on the right No intrinsic wasting bilaterally Good APB muscle belly firing & good finger cross Cap refill is brisk Nerve Conduction Study: Left side only: IMPRESSION: 1. This is an abnormal study. 2. There is electrodiagnostic evidence for left moderate-severe median neuropathy at the wrist, consistent with carpal tunnel syndrome. 3. There is no electrodiagnostic evidence for ulnar neuropathy, brachial plexopathy, or cervical radiculopathy. CLINICAL COMMENT: Study today shows worsening as compared to study done 2021. Katty Adame MD, HAWA 05/04/23 Right side only: 1. Moderately severe right median neuropathy across carpal tunnel. 2. Mild right ulnar neuropathy across cubital tunnel. Dr. Navarro 04/22/22 Psych Appearance: grossly normal Affect: normal affect Attitude: cooperative Assessment & Plan Assessment & Plan (1) Carpal tunnel syndrome on right: Code(s): G56.01 - Carpal tunnel syndrome, right upper limb Category: Medical (2) Carpal tunnel syndrome of left wrist: Code(s): G56.02 - Carpal tunnel syndrome, left upper limb Category: Medical (3) Diabetes: Code(s): E11.9 - Type 2 diabetes mellitus without complications Category: Medical (4) Numbness and tingling in left hand: Code(s): R20.0 - Anesthesia of skin; R20.2 - Paresthesia of skin Category: Medical Plan Assessment and plan: 1. Right carpal tunnel syndrome, S/P release DOS: 12/22/23 Pre-operatively with dense numbness & some thenar wasting Now with improving but not yet normal sensation, improvement in his nighttime symptoms. The patient appears to be doing well post-operatively I educated him about the post-operative course I explained the risks of his sensation not returning, but that surgery was important to maintain muscle function and preserve any sensation possible. 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 He was given a note for work to return on light duty, with a 2lb weight limit with his RUE for 2 weeks, effective 01/09/24. Return to full duty effective 01/23/24 2. Left carpal tunnel syndrome, moderate-severe S/P injection on 05/31/23 Patient reports normal sensation in his fingers today in clinic, and says he does not find his left hand particularly bothersome He would like to wait before considering surgery for his left hand He will follow up in 2 months to see how he is doing, and discuss possible surgery 3. Numbness and tingling in the left small finger Normal sensation today. No cubital tunnel seen on NCS from 05/04/23 4. Left hand stiffness resolved 5. Right cubital tunnel syndrome, mild No numbness and tingling in the right small finger Scribed for Rimma Vilchis MD by Oliverio Ladd, biomedical equipment specialist, on 01/04/24 at 10:30 AM, EST. Scribe Plan - Not visible on output: Scribed for Rimma Vilchis MD by Oliverio Ladd biomedical equipment specialist, on [ ] at [ ], EST. Coding Level of Care Code Global (04654) Diagnoses Carpal tunnel syndrome on right G56.01 Carpal tunnel syndrome of left wrist G56.02 Diabetes E11.9 Numbness and tingling in left hand R20.0; R20.2
== END 2024-01-04 10:47 | disposition home or self-care (01) ==
PROVIDERS: PCP Nurse Practitioner Family; Visit Provider Orthopaedic Surgery
DX: G56.03 Carpal tunnel syndrome, bilateral upper limbs (principal); E11.9 Type 2 diabetes mellitus without complications; R20.0 Anesthesia of skin; R20.2 Paresthesia of skin
CPT/HCPCS: 99024

== ENCOUNTER → 2024-01-04 10:20 | Outpatient (BNVA) | payer OTHER, SELFPAY | PROVIDERS: PCP Nurse Practitioner Family; Visit Provider Orthopaedic Surgery | DX: Z47.89 Encounter for other orthopedic aftercare (principal); G56.02 Carpal tunnel syndrome, left upper limb; E11.9 Type 2 diabetes mellitus without complications; R20.0 Anesthesia of skin; R20.2 Paresthesia of skin; Z98.890 Other specified postprocedural states | CPT/HCPCS: 99212 ==

== ENCOUNTER 2024-06-20 10:01 | Outpatient (AMB) | payer BC, SELFPAY ==
--- NOTE | 2024-06-20 10:33 | MHC.OFFVIS ---
Vital Signs 06/20/24 10:38 Height 5 ft 8 in Weight 210 lb BMI 31.9 Intake Visit Reasons: New prob-RT thumb,clicking noises- limited ROM Intake Note: Nathan 38 yr old right hand dominant male presents today for a new problem visit for his right thumb. States his right thumb started to pop and lock. States this started about 1 month ago and is not getting better. He has pain at his thenar muscle, has weakness, and is dropping items. He is S/P RT CTR 12/22/23 AR- states his symptoms have resolved. Allergies avocado Allergy (Verified 06/20/24 10:37) Rash raspberry Allergy (Verified 06/20/24 10:37) Rash HPI HPI New prob-RT thumb,clicking noises- limited ROM: Details: Nathan is a 38 year old right hand dominant man who returns with a new complaint of right thumb locking. He says his right thumb has been painfully popping & locking for ~1 month now. He also complains of weakness in his thumb and says he is dropping objects at times. In regards to his right hand sensation, he says his symptoms have improved following his carpal tunnel release, and is now normal. He is happy with this result He reports some intermittent numbness in his left median nerve distribution. He received a left carpal tunnel injection on 05/31/23. He is a Diabetic, and this has been poorly controlled in the past, partially due to medication shortage. 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 Normal sensation in the right ulnar nerve distribution No intrinsic wasting bilaterally Good APB muscle belly firing & good finger cross Vascular: Cap refill brisk ROM: He can make a fist and extend all his digits Visible & palpable locking or catching of the right thumb Tender over the thumb a1 ion Nerve Conduction Study: Left side only: IMPRESSION: 1. This is an abnormal study. 2. There is electrodiagnostic evidence for left moderate-severe median neuropathy at the wrist, consistent with carpal tunnel syndrome. 3. There is no electrodiagnostic evidence for ulnar neuropathy, brachial plexopathy, or cervical radiculopathy. CLINICAL COMMENT: Study today shows worsening as compared to study done 2021. Katty Adame MD, HAWA 05/04/23 Right side only: 1. Moderately severe right median neuropathy across carpal tunnel. 2. Mild right ulnar neuropathy across cubital tunnel. Dr. Navarro 04/22/22 Psych Appearance: grossly normal Affect: normal affect Attitude: cooperative Assessment & Plan Assessment & Plan (1) Trigger thumb, right thumb: Code(s): M65.311 - Trigger thumb, right thumb Category: Medical (2) Diabetes: Code(s): E11.9 - Type 2 diabetes mellitus without complications Category: Medical Plan Assessment and plan: 1. Right trigger thumb I educated him about this condition I discussed operative and non-operative treatment options The patient would like to proceed with surgery The risks and benefits of operative treatment were discussed with the patient and the patient wishes to proceed with surgery. These risks include, but are not limited to risk of damage to blood vessels, nerves, tendons, infection, recurrence, incomplete relief of preoperative symptoms, persistent pain, possible need for further surgery and the risks associated with regional blocks and anesthesia. The plan is to take the patient to the operating room sometime in the next few weeks for the following procedures: 1. Right trigger thumb release, under local All of the preoperative paperwork including the consent was reviewed today. All the patient's questions were answered. The patient understands that they will be contacted by our rubber engraver soon to schedule this procedure He denies blood thinners, asthma, heart, lung, kidney issues he is a Diabetic, last HgA1c on file is 8.2% on 10/25/23. They will need an updated HgA1c that is <8.1% in order to proceed with surgery, and they expressed understanding 2. Right carpal tunnel syndrome, S/P release DOS: 12/22/23 Pre-operatively with dense numbness & some thenar wasting Now with normal sensation & improvement in his nighttime symptoms. 3. Left carpal tunnel syndrome, moderate-severe S/P injection on 05/31/23 Symptoms intermittent & occasional at this time He would like to wait before considering surgery for his left hand. I explained the risks of delaying treatment and recommend he consider surgery sometime this summer. 4. Numbness and tingling in the left small finger Normal sensation today. No cubital tunnel seen on NCS from 05/04/23 5. Left hand stiffness resolved 6. Right cubital tunnel syndrome, mild No numbness and tingling in the right small finger Scribed for Rimma Vilchis MD by Oliverio Ladd, product manager medical device, on 06/20/24 at 10:45 AM, EST. Scribe Plan - Not visible on output: Scribed for Rimma Vilchis MD by Oliverio Ladd product manager medical device, on [ ] at [ ], EST. Coding Level of Care Code Est Pt Level 4 (92043) Diagnoses Trigger thumb, right thumb M65.311 Diabetes E11.9
[2024-06-20 10:38] VITALS: BMI 31.9
== END 2024-06-20 10:49 | disposition home or self-care (01) ==
LOC: HO.HOS 10:01
PROVIDERS: PCP Nurse Practitioner Family; Visit Provider Orthopaedic Surgery
DX: M65.311 Trigger thumb, right thumb (principal); E11.9 Type 2 diabetes mellitus without complications
CPT/HCPCS: 99214

== ENCOUNTER → 2024-06-20 10:01 | Outpatient (BNVA) | payer BC, SELFPAY | PROVIDERS: PCP Nurse Practitioner Family; Visit Provider Orthopaedic Surgery ==

== ENCOUNTER 2024-07-20 10:29 | Outpatient (AMB) | payer BC, SELFPAY ==
--- NOTE | 2024-07-20 10:48 | A.OFFVIS_ITS ---
Vital Signs 07/20/24 10:50 Height 5 ft 8 in Weight 210 lb BMI 31.9 Handedness Right Intake Visit Reasons: INJ-RT thumb trigger Intake Note: Nathan is a 38 year old right hand dominant male who presents today for a follow up visit for his right thumb. Patient is here today for an injection. Hx of diabetes. A1C one month ago was 13. Allergies avocado Allergy (Verified 07/20/24 10:50) Rash raspberry Allergy (Verified 07/20/24 10:50) Rash HPI HPI INJ-RT thumb trigger: Details: Nathan is a 38 year old right hand dominant male who presents today for a follow up visit for his right thumb. Patient is here today for an injection. Hx of diabetes. A1C one month ago was 13. 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 Normal sensation in the right ulnar nerve distribution No intrinsic wasting bilaterally Good APB muscle belly firing & good finger cross Vascular: Cap refill brisk ROM: He can make a fist and extend all his digits Visible & palpable locking or catching of the right thumb Tender over the thumb a1 ion Nerve Conduction Study: Left side only: IMPRESSION: 1. This is an abnormal study. 2. There is electrodiagnostic evidence for left moderate-severe median neuropathy at the wrist, consistent with carpal tunnel syndrome. 3. There is no electrodiagnostic evidence for ulnar neuropathy, brachial plexopathy, or cervical radiculopathy. CLINICAL COMMENT: Study today shows worsening as compared to study done 2021. Katty Adame MD, HAWA 05/04/23 Right side only: 1. Moderately severe right median neuropathy across carpal tunnel. 2. Mild right ulnar neuropathy across cubital tunnel. Dr. Navarro 04/22/22 Psych Appearance: grossly normal Affect: normal affect Attitude: cooperative Assessment & Plan Assessment & Plan (1) Trigger thumb, right thumb: Code(s): M65.311 - Trigger thumb, right thumb Category: Medical Plan 1. Trigger thumb of right thumb Patient is educated about this condition Patient is educated about the typical recovery course At this time, patient is informed that I do not feel it is safe to perform a trigger thumb injection at this time, as his A1c has worsened significantly even since previous evaluation which is an indicated that his blood sugar control has not been good Patient is educated on the potential risks of performing a steroid injection with poor glycemic control Patient is disappointed, but states understanding of this Follow-up in a few weeks to discuss potential steroid injection if he is able to keep his blood sugars under good control for that period of time, sooner with any acute concerns Coding Level of Care Code Est Pt Level 3 (99597) Diagnoses Trigger thumb, right thumb M65.311
[2024-07-20 10:50] VITALS: BMI 31.9
== END 2024-07-20 11:12 | disposition home or self-care (01) ==
LOC: HO.HOS 10:30
PROVIDERS: PCP Nurse Practitioner Family
DX: M65.311 Trigger thumb, right thumb (principal); E11.9 Type 2 diabetes mellitus without complications
CPT/HCPCS: 99213

== ENCOUNTER → 2024-07-20 10:29 | Outpatient (BNVA) | payer BC, SELFPAY | PROVIDERS: PCP Nurse Practitioner Family | DX: Z13.89 Encounter for screening for other disorder (principal) ==

== ENCOUNTER 2024-08-14 03:02 | Emergency (ER) | payer BC, SELFPAY ==
[2024-08-14 03:57] VITALS: BP 116/77; PULSE 86; RESP 18; TEMP 36.3; O2SAT 96; BMI 32.7
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
[2024-08-14 06:49] VITALS: BP 113/75; PULSE 80; RESP 20; TEMP 36.6; O2SAT 97
[2024-08-14 06:59] VITALS: BP 113/75; PULSE 80; RESP 20; TEMP 36.6; O2SAT 97
== END 2024-08-14 06:59 | disposition home or self-care (01) ==
PROVIDERS: Emergency Provider Emergency Medicine
DX: M62.830 Muscle spasm of back (principal); S39.012A Strain of muscle, fascia and tendon of lower back, initial encounter; X50.0XXA Overexertion from strenuous movement or load, initial encounter; Y93.H2 Activity, gardening and landscaping; Y92.017 Garden or yard in single-family (private) house as the place of occurrence of the external cause; Y99.9 Unspecified external cause status
CPT/HCPCS: 99282; 99283

== ENCOUNTER 2024-12-05 15:04 | Outpatient (AMB) | payer BC, MEDICAID, SELFPAY ==
--- NOTE | 2024-12-05 15:22 | MHC.OFFVIS ---
Vital Signs 12/05/24 15:31 Height 5 ft 8 in Weight 210 lb BMI 31.9 Handedness Right Intake Visit Reasons: OV: bilateral thumbs Intake Note: Nathan is a 38 year old right hand dominant male who presents today for a follow up of his Right Trigger Thumb. A right thumb trigger injection was discussed on 07/20/24 however it was not performed due to elevated A1C levels. An appointment was scheduled for 08/21/24 for a possible injection; Appointment was missed. Trigger thumb release previously scheduled & cancelled due to elevated A1C. Today he expresses being unable to bend the left thumb due to locking and stiffness. Reports his right thumb slightly feels better however he still feels weakness. A1c is 9.3 and as of now his blood sugar is 237 because he ate before his visit. This morning his blood sugar was a 168. Allergies avocado Allergy (Verified 12/05/24 15:30) Rash raspberry Allergy (Verified 12/05/24 15:30) Rash HPI HPI OV: bilateral thumbs: Details: Nathan is a 38 year old right hand dominant male who presents today for a follow up of his Right Trigger Thumb. A right thumb trigger injection was discussed on 07/20/24 however it was not performed due to elevated A1C levels. An appointment was scheduled for 08/21/24 for a possible injection; Appointment was missed. Trigger thumb release previously scheduled & cancelled due to elevated A1C. Today he expresses being unable to bend the left thumb due to locking and stiffness. Reports his right thumb slightly feels better however he still feels weakness. A1c is 9.3 and as of now his blood sugar is 237 because he ate before his visit. This morning his blood sugar was a 168. 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 Normal sensation in the right ulnar nerve distribution No intrinsic wasting bilaterally Good APB muscle belly firing & good finger cross Vascular: Cap refill brisk ROM: He can make a fist and extend all his digits locked right trigger thumb noted Tender over the thumb a1 ion Nerve Conduction Study: Left side only: IMPRESSION: 1. This is an abnormal study. 2. There is electrodiagnostic evidence for left moderate-severe median neuropathy at the wrist, consistent with carpal tunnel syndrome. 3. There is no electrodiagnostic evidence for ulnar neuropathy, brachial plexopathy, or cervical radiculopathy. CLINICAL COMMENT: Study today shows worsening as compared to study done 2021. Katty Adame MD, [facility] 05/04/23 Right side only: 1. Moderately severe right median neuropathy across carpal tunnel. 2. Mild right ulnar neuropathy across cubital tunnel. Dr. Navarro 04/22/22 Psych Appearance: grossly normal Affect: normal affect Attitude: cooperative Assessment & Plan Assessment & Plan (1) Trigger thumb, right thumb: Code(s): M65.311 - Trigger thumb, right thumb Category: Medical Plan 1. Locked right trigger thumb Patient is educated about this condition Patient is educated about the typical treatment course Typically, we are unable to perform a trigger release in a patient who is A1c is at this patient's level, however I feel that he should be seen by Dr. Vilchis due to the fact that the trigger thumb has become stuck in a flexed position to see if there is any urgent intervention indicated Patient will follow-up with Dr. Vilchis for next available appointment to discuss this Patient understands this in his amenable to this plan Coding Level of Care Code Est Pt Level 3 (87528) Diagnoses Trigger thumb, right thumb M65.311
[2024-12-05 15:31] VITALS: BMI 31.9
== END 2024-12-05 15:53 | disposition home or self-care (01) ==
DX: M65.311 Trigger thumb, right thumb (principal); E11.69 Type 2 diabetes mellitus with other specified complication
CPT/HCPCS: 99213